=== PATIENT | male | born 1955 | race Two or more races ===

== ENCOUNTER 2024-04-29 07:47 | Day surgery (SDC) | payer BC, MEDICARE ==
[2024-04-23 15:41] LABS: BASOPHILS # (AUTO) 0.1 X10'3 (0-0.2); BASOPHILS % (AUTO) 0.9 % (0-1); EOSINOPHILS # (AUTO) 0.8 X10'3 (0-0.9); EOSINOPHILS % (AUTO) 11.7 % (0-6); LYMPHOCYTES # (AUTO) 0.8 X10'3 (1.1-4.8); LYMPHOCYTES % (AUTO) 11.5 % (21-51); MEAN CORPUSCULAR HEMOGLOBIN 31.8 PG (27.0-31.0); MEAN CORPUSCULAR HGB CONC 34.1 g/dL (33.0-36.5); MEAN CORPUSCULAR VOLUME 93.2 FL (78-98); MEAN PLATELET VOLUME 9.6 FL (7.4-10.4); MONOCYTES # (AUTO) 0.7 X10'3 (0-0.9); MONOCYTES % (AUTO) 10.1 % (2-12); NEUTROPHILS # (AUTO) 4.5 X10'3 (1.8-7.7); NEUTROPHILS % (AUTO) 65.8 % (42-75); PRE OP HEMATOCRIT 41.3 % (42.0-52.0); PRE OP HEMOGLOBIN 14.1 g/dL (14.0-17.9); PRE OP PLATELET COUNT 132 X10'3 (140-440); PRE OP WHITE BLOOD COUNT 6.8 10'3 (4.8-10.8); RED BLOOD COUNT 4.43 X10'6 (4.70-6.10); RED CELL DISTRIBUTION WIDTH 13.5 % (11.5-14.5)
[2024-04-23 15:59] LABS: ALBUMIN 3.8 G/DL (3.4-5.0); ALBUMIN/GLOBULIN RATIO 0.9 (1.1-1.5); BLOOD UREA NITROGEN 41 MG/DL (7-18); CHLORIDE 106 MMOL/L (99-107); CREATININE 1.95 MG/DL (0.60-1.10); PRE OP ALT 23 U/L (30-65); PRE OP ANION GAP 13 (8-16); PRE OP AST 25 U/L (10-37); PRE OP BILIRUB, TOTAL 0.7 MG/DL (0.0-1.0); PRE OP GLUCOSE 153 MG/DL (70-104); PRE OP POTASSIUM 4.4 MMOL/L (3.4-5.1); PRE OP SODIUM 138 MMOL/L (135-145); TOTAL CARBON DIOXIDE 19.5 MMOL/L (24-32); TOTAL PROTEIN 8.2 G/DL (6.4-8.2); eGFR 34 ML/MIN
[2024-04-23 16:37] LABS: ALKALINE PHOSPHATASE 186 IU/L (46-116)
[~2024-04-29] VITALS: Ht 154.9 cm; Wt 68.1 kg
[2024-04-29] VITALS (8 sets, daily range): BP systolic 100–117; BP diastolic 54–75; PULSE 72–78; RESP 10–19; TEMP 97.3; O2SAT 97–100
[2024-04-29] MEDS: DOCUMENT DATE & TIME OF BETA-BLOCKER PO ONE (05:30)
[2024-04-29] MEDS: ceFAZolin 2gm in dextrose, iso 50 ML IV ONE (05:30)
[~2024-04-29 07:47] MED LIST: ATOR40TA72 PO; BUPIVAcaine/PF 2.5mg/ml (0.25%) 10ml vial ONE; FURO40TA4 PO; LIDOcaine 2% (20mg/ml) 5ml vial ONE; LOSA25TA41 PO; METO-395 PO; SITA100T15 PO; ZAR2.5T PO
[2024-04-29] MEDS: ringers solution, lacted 1,000 ML IV SCH (08:39)
[2024-04-29] MEDS: famotidine 20mg tablet PO ONE (08:39)
[2024-04-29] MEDS: BUPIVAcaine/PF 5 mg/ml 10ml IJ ONE (09:15)
[2024-04-29] MEDS ORDERED: propofol inj 20 ML IV ONE (09:18)
[2024-04-29] MEDS: HYDROcodone/acetaminophen 5mg/325mg tablet PO ONE (09:59)
== END 2024-04-29 10:26 | disposition home or self-care (01) ==
LOC: PAS 07:47
PROVIDERS: ATTEND Orthopaedic Surgery Hand Surgery
DX: G56.01 Carpal tunnel syndrome, right upper limb (principal); M10.9 Gout, unspecified; I25.10 Atherosclerotic heart disease of native coronary artery without angina pectoris; I12.9 Hypertensive chronic kidney disease with stage 1 through stage 4 chronic kidney disease, or unspecified chronic kidney disease; N18.9 Chronic kidney disease, unspecified; Z87.442 Personal history of urinary calculi; E11.22 Type 2 diabetes mellitus with diabetic chronic kidney disease; E78.5 Hyperlipidemia, unspecified; I25.2 Old myocardial infarction; I27.20 Pulmonary hypertension, unspecified; Z79.899 Other long term (current) drug therapy
CPT/HCPCS: 36415; 64721; 80053; 82948; 85025; 93005; A4215; A6449; J0665; J0690; J2003; J2704; J3490; J7030; J7120; Z7506; Z7512; Z7610